=== PATIENT | female | born 1970 | race Asian ===

== ENCOUNTER → 2017-11-02 | Outpatient (CLI) | payer OTHER | END | disposition home or self-care (01) | LOC: CFH 07:01 | PROVIDERS: ATTEND Nurse Practitioner Family | DX: N83.202 Unspecified ovarian cyst, left side (principal); N97.0 Female infertility associated with anovulation | CPT/HCPCS: 76830 ==

== ENCOUNTER → 2018-04-06 | Outpatient (CLI) | payer OTHER | END | disposition home or self-care (01) | LOC: CFH 14:45 | PROVIDERS: ATTEND Nurse Practitioner Family | DX: Z02.9 Encounter for administrative examinations, unspecified (principal) ==

== ENCOUNTER → 2018-04-11 | Outpatient (CLI) | payer OTHER | END | disposition home or self-care (01) | LOC: CFH 07:32 | PROVIDERS: ATTEND Nurse Practitioner Family | DX: M79.662 Pain in left lower leg (principal); R22.31 Localized swelling, mass and lump, right upper limb | CPT/HCPCS: 76642; 77066 ==

== ENCOUNTER 2018-11-25 14:44 | Outpatient (CLI) | payer OTHER | END 2018-11-25 23:59 | disposition home or self-care (01) | LOC: CFH 14:44 | PROVIDERS: ATTEND Internal Medicine Cardiovascular Disease | DX: I34.0 Nonrheumatic mitral (valve) insufficiency (principal); I10 Essential (primary) hypertension; I70.1 Atherosclerosis of renal artery | CPT/HCPCS: 0399T; 93306 ==

== ENCOUNTER → 2018-11-30 | Outpatient (CLI) | payer OTHER | END | disposition home or self-care (01) | LOC: CVU 09:45 | PROVIDERS: ATTEND Internal Medicine Cardiovascular Disease | DX: Z01.810 Encounter for preprocedural cardiovascular examination (principal); I10 Essential (primary) hypertension; I70.1 Atherosclerosis of renal artery | CPT/HCPCS: 93975 ==

== ENCOUNTER 2019-06-09 10:29 | Emergency (ER) | payer OTHER ==
[~2019-06-09] VITALS: Ht 157.5 cm; Wt 61.0 kg
--- NOTE | 2019-06-09 10:56 | NUR ---
PT PRESENTS W ABDOMINAL PAIN, N/V. STARTED THIS AM. DENIES BEING AROUND SICK PEOPLE OR EATING BAD FOOD. PT IN GOWN. WAITING FOR FURTHER ORDES.
[2019-06-09] MEDS ORDERED: MORPHINE SULFATE 4 MG/ML, 1ML ONE (11:48)
[2019-06-09] MEDS ORDERED: DIPHENHYDRAMINE 50 MG/ML, 1ML ONE (11:48)
[2019-06-09] MEDS ORDERED: METOCLOPRAMIDE 5 MG/ML, 2ML ONE (11:48)
[2019-06-09] MEDS ORDERED: HYDR12.517 PO (11:56)
[2019-06-09] MEDS ORDERED: LABE200T6 PO (11:56)
[2019-06-09] MEDS ORDERED: DICL25TA PO (11:56)
[2019-06-09] MEDS ORDERED: GABA300C10 PO (11:56)
--- NOTE | 2019-06-09 11:59 | NUR ---
medicated per orders. given warm blanket
[2019-06-09] MEDS ORDERED: SODIUM CHLORIDE 0.9% 1,000ML IVBOLUS ONE (12:00)
[2019-06-09] MEDS ORDERED: MORPHINE SULFATE 4 MG/ML, 1ML IVPush PRN (12:00)
[2019-06-09] MEDS ORDERED: SODIUM CHLORIDE FLUSH 10ML SYR IVF ONE (12:00)
[2019-06-09] MEDS ORDERED: DIPHENHYDRAMINE 50 MG/ML, 1ML IVPush ONE (12:00)
[2019-06-09] MEDS ORDERED: METOCLOPRAMIDE 5 MG/ML, 2ML IVPush ONE (12:00)
--- NOTE | 2019-06-09 12:51 | NUR ---
PT RESTING. PT STATES PAIN IS BETTER. NO NEEDS AT THIS TIME
--- NOTE | 2019-06-09 12:54 | NUR ---
RN CALLED LAB INQURING ABOUT WAIT FOR LABS TO PEND, BLOOD WAS SENT EARLIER
[2019-06-09 13:19] LABS: ALBUMIN 4.3 g/dL (3.4-5.0); ANION GAP 10 mmol/L (5-15); CALCIUM 9.8 mg/dL (8.5-10.1); CHLORIDE 102 mmol/L (98-107); CREATININE 0.97 mg/dL (0.55-1.02)
[2019-06-09 13:27] LABS: ALANINE AMINOTRANSFERASE 39 U/L (12-78); ALKALINE PHOSPHATASE 62 U/L (45-117); BILIRUBIN,TOTAL 0.6 mg/dL (0.2-1.0); TOTAL PROTEIN 8.5 g/dL (6.4-8.2)
[2019-06-09 13:40] VITALS: BP 153/90
[2019-06-09 13:42] LABS: BASOPHILS # (AUTO) 0.04 x10^3/uL (0-0.1); BASOPHILS % (AUTO) 0 % (0-1); EOSINOPHILS # (AUTO) 0.02 x10^3/uL (0-0.4); EOSINOPHILS % (AUTO) 0 % (1-7); LYMPHOCYTES # (AUTO) 1.22 x10^3/uL (1-3.4); LYMPHOCYTES % (AUTO) 10 % (22-44); MD NO; MEAN CORPUSCULAR HEMOGLOBIN 31.2 pg (27.0-34.8); MEAN CORPUSCULAR HGB CONC 33.5 g/dL (32.4-35.8); MEAN CORPUSCULAR VOLUME 93.2 fL (80-100); MEAN PLATELET VOLUME 7.3 fL (7.4-10.4); MONOCYTES # (AUTO) 0.92 x10^3/uL (0.2-0.8); MONOCYTES % (AUTO) 8 % (2-9); NEUTROPHILS # (AUTO) 9.86 x10^3/uL (1.8-6.8); NEUTROPHILS % (AUTO) 82 % (42-75); PLATELET COUNT 321 x10^3/uL (130-400); RED CELL DISTRIBUTION WIDTH 13.8 % (9.6-15.2)
--- NOTE | 2019-06-09 14:30 | NUR ---
Patient/Caregiver given discharge instructions and they have confirmed that they understand the instructions. Patient ambulatory with steady gait.
== END 2019-06-09 14:32 | disposition home or self-care (01) ==
LOC: ED 12:49
DX: R10.84 Generalized abdominal pain (principal); R11.0 Nausea; I10 Essential (primary) hypertension
CPT/HCPCS: 36415; 80053; 83690; 85025; 96374; 96375; 99283; J1200; J2270; J2765; J7030

== ENCOUNTER → 2020-05-23 | Outpatient (CLI) | payer OTHER ==
[~2020-05-23] MED LIST: DICL25TA PO; GABA300C10 PO; HYDR12.517 PO; LABE200T6 PO
== END | disposition home or self-care (01) ==
LOC: CFH 13:12
PROVIDERS: ATTEND Nurse Practitioner Family
DX: Z12.31 Encounter for screening mammogram for malignant neoplasm of breast (principal)
CPT/HCPCS: 77063; 77067